=== PATIENT | male | born 1945 | race African-American/Black ===

== ENCOUNTER 2018-05-12 14:48 | Inpatient (IN) | payer MEDICARE, MEDICAID ==
[~2018-05-12] VITALS: Ht 180.3 cm; Wt 70.8 kg
[2018-05-12 16:00] VITALS: BP 133/62
[2018-05-12 16:31] VITALS: BP 133/62
[2018-05-12] MEDS ORDERED: CLONIDINE 0.1MG TABLET PO PRN (16:59)
[2018-05-12] MEDS ORDERED: MORPHINE SULFATE 4 MG/ML CPJ (NOT FOR IM USE) IV PRN ×2 (17:00→22:14)
[2018-05-12 18:07] LABS: BASOPHILS % 1.2 % (0.0-2.0); EOSINOPHILS % 2.1 % (0.0-5.0); HEMATOCRIT. 41.2 % (42.0-52.0); HEMOGLOBIN. 13.2 g/dL (14.0-18.0); LYMPHOCYTES % 13.9 % (20.0-50.0); MEAN CORPUSCULAR HEMOGLOBIN 28.1 pg (28.0-32.0); MEAN CORPUSCULAR VOLUME 87.8 fL (80.0-94.0); MEAN PLATELET VOLUME 9.8 fl (7.4-10.4); MONOCYTES % 10.1 % (2.0-8.0); NEUTROPHILS % 72.7 % (40.0-76.0); PLATELET 119 x1000/uL (130-400); RED BLOOD CELL COUNT 4.69 mill/uL (4.7-6.1); RED CELL DISTRIBUTION WIDTH 15.9 % (11.6-14.6)
[2018-05-12] MEDS ORDERED: CEFTRIAXONE 1 G PREMIX 50 ML IV SCH (19:00)
[2018-05-12 20:00] VITALS: BP 141/75
[2018-05-12] MEDS: CEFTRIAXONE 1 G PREMIX 50 ML IV SCH (21:47)
[2018-05-13] VITALS: BP 153/82
[2018-05-13 04:00] VITALS: BP 123/63
[2018-05-13 06:59] LABS: BASOPHILS % 1.2 % (0.0-2.0); HEMATOCRIT. 35.4 % (42.0-52.0); HEMOGLOBIN. 11.4 g/dL (14.0-18.0); LYMPHOCYTES % 16.3 % (20.0-50.0); MEAN CORPUSCULAR VOLUME 87.1 fL (80.0-94.0); MEAN PLATELET VOLUME 10.7 fl (7.4-10.4); NEUTROPHILS % 67.5 % (40.0-76.0); PLATELET 120 x1000/uL (130-400); RED BLOOD CELL COUNT 4.07 mill/uL (4.7-6.1); RED CELL DISTRIBUTION WIDTH 15.6 % (11.6-14.6)
[2018-05-13 08:00] VITALS: BP 130/66
[2018-05-13 08:16] LABS: PHOSPHORUS 3.6 mg/dL (2.5-4.9)
[2018-05-13] MEDS: FOLIC ACID 1MG TABLET PO SCH (08:42)
[2018-05-13] MEDS ORDERED: CEFTRIAXONE SODIUM 1 G/VIAL IV SCH (09:00)
[2018-05-13 12:04] VITALS: BP 134/69
[2018-05-13] MEDS: LEVOTHYROXINE SODIUM 50MCG TABLET PO SCH (12:57)
[2018-05-13] MEDS: ASPIRIN 81MG TABLET PO SCH (12:57)
[2018-05-13] MEDS: FOLIC ACID/VITAMIN B COMP W-C TABLET PO SCH (12:57)
[2018-05-13] MEDS ORDERED: FOLIC ACID/VITAMIN B COMP W-C TABLET PO SCH (13:00)
[2018-05-13 16:06] VITALS: BP 140/69
[2018-05-13 20:00] VITALS: BP 134/64
[2018-05-13] MEDS: CEFTRIAXONE 1 G PREMIX 50 ML IV SCH (21:40)
[2018-05-14] VITALS: BP 122/70
[2018-05-14 04:00] VITALS: BP 145/62
[2018-05-14] MEDS: LEVOTHYROXINE SODIUM 50MCG TABLET PO SCH (06:49)
[2018-05-14 08:00] VITALS: BP 131/78
[2018-05-14] MEDS: FOLIC ACID/VITAMIN B COMP W-C TABLET PO SCH (10:24)
[2018-05-14] MEDS: FOLIC ACID 1MG TABLET PO SCH (10:24)
[2018-05-14] MEDS: ASPIRIN 81MG TABLET PO SCH (10:24)
[2018-05-14 12:00] VITALS: BP_SYST 101; BP_SYST 125; BP_DIAS 59
[2018-05-14 16:00] VITALS: BP 125/59
[2018-05-14 18:27] LABS: T4 FREE 0.79 ng/dL (0.76-1.46)
[2018-05-14] MEDS: CEFTRIAXONE 1 G PREMIX 50 ML IV SCH (20:40)
[2018-05-15 04:00] VITALS: BP 137/66
[2018-05-15 06:36] LABS: BASOPHILS % 1.3 % (0.0-2.0); EOSINOPHILS % 3.9 % (0.0-5.0); HEMATOCRIT. 38.4 % (42.0-52.0); HEMOGLOBIN. 12.3 g/dL (14.0-18.0); LYMPHOCYTES % 23.4 % (20.0-50.0); MEAN CORPUSCULAR HEMOGLOBIN 28.3 pg (28.0-32.0); MEAN CORPUSCULAR VOLUME 88.4 fL (80.0-94.0); MEAN PLATELET VOLUME 9.8 fl (7.4-10.4); MONOCYTES % 8.1 % (2.0-8.0); NEUTROPHILS % 63.3 % (40.0-76.0); PLATELET 137 x1000/uL (130-400); RED BLOOD CELL COUNT 4.35 mill/uL (4.7-6.1); RED CELL DISTRIBUTION WIDTH 15.7 % (11.6-14.6)
[2018-05-15] MEDS ORDERED: PROPOFOL 200MG/20ML VIAL IV ONE (06:44)
[2018-05-15] MEDS ORDERED: FENTANYL CITRATE/PF 50MCG/ML 2ML VIAL ONE (06:44)
[2018-05-15] MEDS ORDERED: LIDOCAINE HCL/PF 1% 10 MG/ML 5ML VIAL ONE (06:45)
[2018-05-15] MEDS ORDERED: MIDAZOLAM HCL 2 MG/2 ML VIAL ONE (06:46)
[2018-05-15] MEDS ORDERED: ROCURONIUM BROMIDE 10MG/ML VIAL 5ML IV ONE (06:47)
[2018-05-15] MEDS ORDERED: EPHEDRINE SULFATE 50MG/ML VIAL ONE (06:48)
[2018-05-15] MEDS ORDERED: SODIUM CHLORIDE 0.9% 10ML VIAL ONE ×3 (06:48→07:57)
[2018-05-15] MEDS ORDERED: CEFAZOLIN SODIUM 1000MG/VIAL ONE (06:49)
[2018-05-15] MEDS ORDERED: SKIN ADHESIVE 0.7 GM EA TOP ONE (07:01)
[2018-05-15] MEDS ORDERED: BUPIVACAINE HCL 0.5% (5MG/ML) 50ML ONE (07:01)
[2018-05-15] MEDS: LEVOTHYROXINE SODIUM 50MCG TABLET PO SCH (07:20)
[2018-05-15] MEDS ORDERED: PHENYLEPHRINE HCL 10 MG/ML 1ML (IV VIAL) IV ONE (07:56)
[2018-05-15] MEDS ORDERED: GLYCOPYRROLATE 0.2 MG/ML 2ML VIAL ONE (08:04)
[2018-05-15] MEDS ORDERED: ONDANSETRON HCL 4MG/2ML INJ ONE (08:20)
[2018-05-15] MEDS ORDERED: BUPIVACAINE HCL 0.5% 125 ML in ON-Q PM012 DRUG DELIV DEVICE 1 EA IR SCH (09:00)
[2018-05-15] MEDS: FOLIC ACID 1MG TABLET PO SCH (09:00)
[2018-05-15] MEDS: ASPIRIN 81MG TABLET PO SCH (09:00)
[2018-05-15] MEDS: FOLIC ACID/VITAMIN B COMP W-C TABLET PO SCH (09:00)
[2018-05-15] MEDS ORDERED: BUPIVACAINE HCL 0.5% 125 ML in ON-Q PUMP (PM012=P100X2) IR SCH (09:00)
[2018-05-15] MEDS ORDERED: HYDROCODONE/ACETAMINOPHEN 5/325MG TABLET PO PRN ×2 (09:15)
[2018-05-15] MEDS ORDERED: MORPHINE SULFATE 4 MG/ML CPJ (NOT FOR IM USE) IV PRN ×2 (09:15)
[2018-05-15] MEDS ORDERED: HYDROMORPHONE HCL/PF 2MG/ML CPJ IV PRN (10:00)
[2018-05-15 12:00] VITALS: BP 99/50
[2018-05-15] MEDS: DEXT 5%/0.45% NACL KCL 20MEQ/L 1,000 ML IV SCH ×2 (13:17→22:14)
[2018-05-15 16:00] VITALS: BP 99/56
[2018-05-15 20:00] VITALS: BP 100/53
[2018-05-15] MEDS: SODIUM CHLORIDE 0.9% INJ 3ML FLUSH IVF SCH ×2 (22:14→23:58)
[2018-05-15] MEDS: CEFTRIAXONE 1 G PREMIX 50 ML IV SCH (23:59)
[2018-05-16] VITALS: BP 98/51
[2018-05-16 05:53] VITALS: BP 104/50
[2018-05-16] MEDS: LEVOTHYROXINE SODIUM 50MCG TABLET PO SCH (07:13)
[2018-05-16] MEDS: DEXT 5%/0.45% NACL KCL 20MEQ/L 1,000 ML IV SCH (07:14)
[2018-05-16] MEDS: SODIUM CHLORIDE 0.9% INJ 3ML FLUSH IVF SCH ×3 (07:15→21:05)
[2018-05-16 07:33] LABS: HEMATOCRIT. 25.2 % (42.0-52.0); HEMOGLOBIN. 8.1 g/dL (14.0-18.0); MEAN CORPUSCULAR HEMOGLOBIN 28.5 pg (28.0-32.0); MEAN CORPUSCULAR VOLUME 88.1 fL (80.0-94.0); MEAN PLATELET VOLUME 10.7 fl (7.4-10.4); PLATELET 116 x1000/uL (130-400); RED BLOOD CELL COUNT 2.86 mill/uL (4.7-6.1); RED CELL DISTRIBUTION WIDTH 15.5 % (11.6-14.6)
[2018-05-16 08:00] VITALS: BP 94/37
[2018-05-16] MEDS: FOLIC ACID 1MG TABLET PO SCH (09:10)
[2018-05-16] MEDS: ASPIRIN 81MG TABLET PO SCH (09:10)
[2018-05-16] MEDS: FOLIC ACID/VITAMIN B COMP W-C TABLET PO SCH (09:10)
[2018-05-16] MEDS ORDERED: SODIUM CHLORIDE 0.9% 500 ML IV ONE (09:15)
[2018-05-16 12:03] VITALS: BP_SYST 127; BP_SYST 92; BP_DIAS 41; BP_DIAS 83
[2018-05-16 14:21] LABS: PLATELET ESTIMATE SLIGHTLY DECREASED
[2018-05-16] MEDS: BISACODYL 5MG TABLET PO SCH (14:31)
[2018-05-16 16:24] VITALS: BP 110/35
[2018-05-16 20:00] VITALS: BP 110/43
[2018-05-16 20:22] LABS: HEMATOCRIT 23.4 % (42.0-52.0); HEMOGLOBIN 7.5 g/dL (14.0-18.0); MEAN CORPUSCULAR HEMOGLOBIN 28.4 pg (28.0-32.0); MEAN CORPUSCULAR VOLUME 89.1 fL (80.0-94.0); PLATELET 104 x1000/uL (130-400); RED BLOOD CELL COUNT 2.63 mill/uL (4.7-6.1); RED CELL DISTRIBUTION WIDTH 15.9 % (11.6-14.6)
[2018-05-16 20:37] LABS: CHLORIDE 99 mEq/L (98-107)
[2018-05-16] MEDS: CEFTRIAXONE 1 G PREMIX 50 ML IV SCH (21:04)
[2018-05-16] MEDS: DIPHENHYDRAMINE 50MG/ML VIAL IV PRN (22:30)
[2018-05-17] VITALS (11 sets, daily range): BP systolic 105–137; BP diastolic 38–62
[2018-05-17] MEDS: LEVOTHYROXINE SODIUM 50MCG TABLET PO SCH (06:20)
[2018-05-17] MEDS: SODIUM CHLORIDE 0.9% INJ 3ML FLUSH IVF SCH ×3 (06:21→21:39)
[2018-05-17 06:25] LABS: HEMATOCRIT. 22.8 % (42.0-52.0); HEMOGLOBIN. 7.4 g/dL (14.0-18.0); MEAN CORPUSCULAR HEMOGLOBIN 28.4 pg (28.0-32.0); MEAN PLATELET VOLUME 10.9 fl (7.4-10.4); PLATELET 107 x1000/uL (130-400); RED BLOOD CELL COUNT 2.59 mill/uL (4.7-6.1); RED CELL DISTRIBUTION WIDTH 15.9 % (11.6-14.6)
[2018-05-17] MEDS: FOLIC ACID/VITAMIN B COMP W-C TABLET PO SCH (08:43)
[2018-05-17] MEDS: BISACODYL 5MG TABLET PO SCH (08:43)
[2018-05-17] MEDS: ASPIRIN 81MG TABLET PO SCH (08:43)
[2018-05-17] MEDS ORDERED: SODIUM POLYSTYRENE SULFONATE 15 G/60 ML BOT PO NR (13:00)
[2018-05-17] MEDS: LACTULOSE 20G/30ML UDC PO SCH ×2 (13:17→21:39)
[2018-05-17] MEDS ORDERED: BISACODYL 10MG SUPP PR PRN (14:15)
[2018-05-17 17:43] LABS: PLATELET ESTIMATE DECREASED
[2018-05-17] MEDS: CEFTRIAXONE 1 G PREMIX 50 ML IV SCH (21:38)
[2018-05-18] VITALS (13 sets, daily range): BP systolic 116–146; BP diastolic 51–67
[2018-05-18] MEDS: LACTULOSE 20G/30ML UDC PO SCH ×3 (05:53→20:52)
[2018-05-18] MEDS: SODIUM CHLORIDE 0.9% INJ 3ML FLUSH IVF SCH ×3 (05:53→21:13)
[2018-05-18 06:25] LABS: MEAN CORPUSCULAR VOLUME 84.9 fL (80.0-94.0); MEAN PLATELET VOLUME 10.5 fl (7.4-10.4); PLATELET 102 x1000/uL (130-400); RED BLOOD CELL COUNT 2.39 mill/uL (4.7-6.1); RED CELL DISTRIBUTION WIDTH 17.6 % (11.6-14.6)
[2018-05-18] MEDS: LEVOTHYROXINE SODIUM 50MCG TABLET PO SCH (06:29)
[2018-05-18 07:00] LABS: HEMATOCRIT. 20.3 % (42.0-52.0); HEMOGLOBIN. 6.7 g/dL (14.0-18.0)
[2018-05-18] MEDS: FOLIC ACID/VITAMIN B COMP W-C TABLET PO SCH (08:52)
[2018-05-18] MEDS: BISACODYL 5MG TABLET PO SCH (08:53)
[2018-05-18] MEDS: ASPIRIN 81MG TABLET PO SCH (08:53)
[2018-05-18 11:48] LABS: PLATELET ESTIMATE DECREASED
[2018-05-18 16:52] LABS: HEMATOCRIT 22.8 % (42.0-52.0); HEMOGLOBIN 7.5 g/dL (14.0-18.0)
[2018-05-18 16:55] LABS: INR 1.3; PROTHROMBIN TIME 12.7 sec (9.1-11.1)
[2018-05-18] MEDS: CEFTRIAXONE 1 G PREMIX 50 ML IV SCH (21:13)
[2018-05-19] VITALS (75 sets, daily range): BP systolic 84–157; BP diastolic 35–80
[2018-05-19] MEDS: LACTULOSE 20G/30ML UDC PO SCH (06:00)
[2018-05-19] MEDS: SODIUM CHLORIDE 0.9% INJ 3ML FLUSH IVF SCH ×3 (06:00→20:16)
[2018-05-19] MEDS: LEVOTHYROXINE SODIUM 50MCG TABLET PO SCH ×2 (06:44→06:45)
[2018-05-19] MEDS ORDERED: DOPAMINE 800MG PREMIX (DOUBLE) 250 ML IV PRN (07:43)
[2018-05-19] MEDS ORDERED: NOREPINEPHRINE 16 MG in DEXT 5% WATER 234 ML IV PRN (07:45)
[2018-05-19 07:58] LABS: HEMATOCRIT. 24.3 % (42.0-52.0); MEAN CORPUSCULAR HEMOGLOBIN 28.2 pg (28.0-32.0); MEAN CORPUSCULAR VOLUME 85.2 fL (80.0-94.0); MEAN PLATELET VOLUME 10.1 fl (7.4-10.4); PLATELET 125 x1000/uL (130-400); RED BLOOD CELL COUNT 2.84 mill/uL (4.7-6.1); RED CELL DISTRIBUTION WIDTH 16.2 % (11.6-14.6)
[2018-05-19 08:05] LABS: PHOSPHORUS 7.6 mg/dL (2.5-4.9)
[2018-05-19 08:07] LABS: BG BASE EXCESS -1.1 mmol/L (-2.0-2.0); BG CARBOXYHEMOGLOBIN 0.6 % (0.5-1.5); BG DEOXYHEMOGLOBIN 0.6 % (0.0-5.0); BG FRACTION INSPIRED OXYGEN 100; BG HCO3 ACT 21.2 mmol/L (22.0-26.0); BG METHEMOGLOBIN 0.3 % (0.0-1.5); BG OXYGEN SATURATION 99.4 % (92.0-98.5); BG OXYHEMOGLOBIN 98.5 % (94.0-97.0); BG PCO2 26.8 mmHg (35.0-45.0); BG PH 7.516 (7.350-7.450); BG PO2 354.1 mmHg (75.0-100.0); BG SAMPLE SITE RIGHT BRACHIAL; BG TIDAL VOLUME(mL) 500 mL; BG TOTAL HEMOGLOBIN 8.8 g/dL (12.0-18.0); BG VENT MODE VENT - A/C; BG VENT RATE 16 set
[2018-05-19] MEDS: PROPOFOL 10MG/ML 100ML 100 ML IV PRN ×2 (09:17→20:16)
[2018-05-19] MEDS ORDERED: LIDOCAINE HCL 1% 20ML VIAL (Pyxis) INJ ONE (09:43)
[2018-05-19] MEDS ORDERED: AMIODARONE HCL 900 MG in DEXT 5% WATER 482 ML IV SCH (10:00)
[2018-05-19] MEDS ORDERED: MAGNESIUM 2 G PREMIX 50 ML IV NR (10:30)
[2018-05-19] MEDS ORDERED: CALCIUM CHLORIDE 1GM/10ML SYR IV ONE (13:12)
[2018-05-19] MEDS ORDERED: SODIUM BICARBONATE 8.4% 1 MEQ/ML 50ML SYR IV ONE (13:12)
[2018-05-19] MEDS ORDERED: VECURONIUM BROMIDE 10 MG/VIAL IV ONE (13:46)
[2018-05-19] MEDS ORDERED: SODIUM CHLORIDE 0.9% 10ML VIAL ONE (13:46)
[2018-05-19] MEDS ORDERED: ETOMIDATE 2MG/ML 10ML VIAL IV ONE (13:46)
[2018-05-19] MEDS: IPRATROPIUM/ALBUTEROL 0.5-3(2.5)MG/3ML NEB HHN SCH ×2 (14:04→20:21)
[2018-05-19] MEDS: PHENYLEPHRINE 40 MG in DEXT 5% WATER 246 ML IV PRN (16:21)
[2018-05-19 16:28] LABS: PLATELET ESTIMATE DECREASED
[2018-05-19] MEDS ORDERED: VANCOMYCIN 2,000 MG in DEXT 5% WATER 500 ML IV NR (17:00)
[2018-05-19 17:41] LABS: HEMATOCRIT 29.5 % (42.0-52.0); HEMOGLOBIN 9.5 g/dL (14.0-18.0)
[2018-05-19] MEDS: ASPIRIN 81MG TABLET PO SCH (19:14)
[2018-05-19] MEDS: FOLIC ACID/VITAMIN B COMP W-C TABLET PO SCH (19:14)
[2018-05-19] MEDS: CEFEPIME 1,000 MG in DEXTROSE 5% WATER 50 ML IV SCH (19:14)
[2018-05-20] VITALS (99 sets, daily range): BP systolic 82–159; BP diastolic 30–81
[2018-05-20] MEDS: PHENYLEPHRINE 40 MG in DEXT 5% WATER 246 ML IV PRN (00:02)
[2018-05-20] MEDS: IPRATROPIUM/ALBUTEROL 0.5-3(2.5)MG/3ML NEB HHN SCH ×4 (02:25→20:00)
[2018-05-20 05:58] LABS: HEMATOCRIT. 28.9 % (42.0-52.0); HEMOGLOBIN. 9.6 g/dL (14.0-18.0); MEAN CORPUSCULAR HEMOGLOBIN 28.3 pg (28.0-32.0); MEAN CORPUSCULAR VOLUME 85.2 fL (80.0-94.0); MEAN PLATELET VOLUME 9.6 fl (7.4-10.4); PLATELET 204 x1000/uL (130-400)
[2018-05-20] MEDS: SODIUM CHLORIDE 0.9% INJ 3ML FLUSH IVF SCH ×3 (06:00→22:00)
[2018-05-20 08:29] LABS: BG BASE EXCESS -1.8 mmol/L (-2.0-2.0); BG CARBOXYHEMOGLOBIN 0.2 % (0.5-1.5); BG DEOXYHEMOGLOBIN 1.2 % (0.0-5.0); BG FRACTION INSPIRED OXYGEN 40; BG HCO3 ACT 23.7 mmol/L (22.0-26.0); BG METHEMOGLOBIN 0.7 % (0.0-1.5); BG OXYGEN SATURATION 98.8 % (92.0-98.5); BG OXYHEMOGLOBIN 97.9 % (94.0-97.0); BG PH 7.359 (7.350-7.450); BG PO2 166.6 mmHg (75.0-100.0); BG SAMPLE SITE LEFT RADIAL; BG TIDAL VOLUME(mL) 500 mL; BG TOTAL HEMOGLOBIN 11.2 g/dL (12.0-18.0); BG VENT MODE VENT - A/C; BG VENT RATE 12 set
[2018-05-20] MEDS: FOLIC ACID/VITAMIN B COMP W-C TABLET PO SCH (09:27)
[2018-05-20] MEDS: ASPIRIN 81MG TABLET PO SCH (09:27)
[2018-05-20] MEDS: LEVOTHYROXINE SODIUM 50MCG TABLET PO SCH (09:36)
[2018-05-20 10:16] LABS: PLATELET ESTIMATE NORMAL
[2018-05-20] MEDS: IPRATROPIUM/ALBUTEROL 0.5-3(2.5)MG/3ML NEB HHN PRN (12:45)
[2018-05-20] MEDS: PROPOFOL 10MG/ML 100ML 100 ML IV PRN (14:10)
[2018-05-20] MEDS: CEFEPIME 1,000 MG in DEXTROSE 5% WATER 50 ML IV SCH (17:54)
[2018-05-21] VITALS (81 sets, daily range): BP systolic 93–164; BP diastolic 39–96
[2018-05-21] MEDS: PHENYLEPHRINE 40 MG in DEXT 5% WATER 246 ML IV PRN ×2 (01:26→11:07)
[2018-05-21] MEDS: PROPOFOL 10MG/ML 100ML 100 ML IV PRN (01:28)
[2018-05-21] MEDS: IPRATROPIUM/ALBUTEROL 0.5-3(2.5)MG/3ML NEB HHN SCH ×4 (03:02→20:16)
[2018-05-21] MEDS: SODIUM CHLORIDE 0.9% INJ 3ML FLUSH IVF SCH ×3 (06:03→23:00)
[2018-05-21 08:07] LABS: HEMATOCRIT. 38.5 % (42.0-52.0); HEMOGLOBIN. 12.6 g/dL (14.0-18.0); MEAN CORPUSCULAR VOLUME 85.7 fL (80.0-94.0); MEAN PLATELET VOLUME 9.6 fl (7.4-10.4); PLATELET 150 x1000/uL (130-400); RED BLOOD CELL COUNT 4.49 mill/uL (4.7-6.1); RED CELL DISTRIBUTION WIDTH 16.1 % (11.6-14.6)
[2018-05-21 08:09] LABS: CHLORIDE 94 mEq/L (98-107)
[2018-05-21 09:02] LABS: BG BASE EXCESS -0.3 mmol/L (-2.0-2.0); BG CARBOXYHEMOGLOBIN 0.6 % (0.5-1.5); BG DEOXYHEMOGLOBIN 1.2 % (0.0-5.0); BG FRACTION INSPIRED OXYGEN 40; BG HCO3 ACT 24.5 mmol/L (22.0-26.0); BG METHEMOGLOBIN 0.3 % (0.0-1.5); BG OXYGEN SATURATION 98.8 % (92.0-98.5); BG OXYHEMOGLOBIN 97.9 % (94.0-97.0); BG PCO2 41.2 mmHg (35.0-45.0); BG PH 7.393 (7.350-7.450); BG PO2 148.1 mmHg (75.0-100.0); BG SAMPLE SITE LEFT RADIAL; BG TIDAL VOLUME(mL) 500 mL; BG TOTAL HEMOGLOBIN 10.1 g/dL (12.0-18.0); BG VENT MODE VENT - A/C; BG VENT RATE 12 set
[2018-05-21] MEDS ORDERED: PROPOFOL 10MG/ML 100ML 100 ML IV PRN (09:30)
[2018-05-21 10:21] LABS: PLATELET ESTIMATE NORMAL
[2018-05-21] MEDS: ASPIRIN 81MG TABLET PO SCH (10:45)
[2018-05-21] MEDS: FOLIC ACID/VITAMIN B COMP W-C TABLET PO SCH (10:45)
[2018-05-21] MEDS: LEVOTHYROXINE SODIUM 50MCG TABLET PO SCH (10:45)
[2018-05-21] MEDS: IPRATROPIUM/ALBUTEROL 0.5-3(2.5)MG/3ML NEB HHN PRN (12:02)
[2018-05-21 13:47] LABS: BG BASE EXCESS -0.2 mmol/L (-2.0-2.0); BG CARBOXYHEMOGLOBIN 0.2 % (0.5-1.5); BG FRACTION INSPIRED OXYGEN 40; BG HCO3 ACT 24.7 mmol/L (22.0-26.0); BG METHEMOGLOBIN 0.3 % (0.0-1.5); BG OXYHEMOGLOBIN 97.5 % (94.0-97.0); BG PCO2 41.7 mmHg (35.0-45.0); BG PEEP (cmH2O) 0 cmH2O; BG PH 7.391 (7.350-7.450); BG PO2 122.6 mmHg (75.0-100.0); BG SAMPLE SITE LEFT RADIAL; BG TOTAL HEMOGLOBIN 10.1 g/dL (12.0-18.0); BG VENT MODE VENT - CPAP
[2018-05-21] MEDS ORDERED: RACEPINEPHRINE 2.25% 0.5ML NEB VIAL HHN NR (14:45)
[2018-05-21] MEDS ORDERED: METHYLPREDNISOLONE SOD SUCC 125 MG/2 ML VIAL IV NR (15:00)
[2018-05-21] MEDS: CEFEPIME 1,000 MG in DEXTROSE 5% WATER 50 ML IV SCH (17:17)
[2018-05-21] MEDS ORDERED: RACEPINEPHRINE 2.25% 0.5ML NEB VIAL HHN PRN (18:00)
[2018-05-21] MEDS: METHYLPREDNISOLONE SOD SUCC 125 MG/2 ML VIAL IV SCH (22:59)
[2018-05-22] VITALS (80 sets, daily range): BP systolic 71–158; BP diastolic 39–125
[2018-05-22] MEDS: DIPHENHYDRAMINE 50MG/ML VIAL IV PRN (00:53)
[2018-05-22] MEDS: IPRATROPIUM/ALBUTEROL 0.5-3(2.5)MG/3ML NEB HHN SCH ×4 (01:40→20:40)
[2018-05-22] MEDS: SODIUM CHLORIDE 0.9% INJ 3ML FLUSH IVF SCH ×3 (06:00→21:44)
[2018-05-22 06:16] LABS: HEMATOCRIT. 26.9 % (42.0-52.0); HEMOGLOBIN. 9.1 g/dL (14.0-18.0); MEAN CORPUSCULAR HEMOGLOBIN 28.7 pg (28.0-32.0); MEAN CORPUSCULAR VOLUME 85.2 fL (80.0-94.0); MEAN PLATELET VOLUME 9.5 fl (7.4-10.4); PLATELET 163 x1000/uL (130-400); RED BLOOD CELL COUNT 3.16 mill/uL (4.7-6.1)
[2018-05-22] MEDS: METHYLPREDNISOLONE SOD SUCC 125 MG/2 ML VIAL IV SCH ×3 (07:14→21:44)
[2018-05-22 07:52] LABS: BG BASE EXCESS -2.2 mmol/L (-2.0-2.0); BG CARBOXYHEMOGLOBIN 0.4 % (0.5-1.5); BG DEOXYHEMOGLOBIN 1.8 % (0.0-5.0); BG FRACTION INSPIRED OXYGEN 40; BG HCO3 ACT 22.5 mmol/L (22.0-26.0); BG METHEMOGLOBIN 0.3 % (0.0-1.5); BG OXYGEN SATURATION 98.2 % (92.0-98.5); BG OXYHEMOGLOBIN 97.5 % (94.0-97.0); BG PCO2 37.8 mmHg (35.0-45.0); BG PH 7.392 (7.350-7.450); BG PO2 127.6 mmHg (75.0-100.0); BG PRESSURE SUPPORT 8; BG SAMPLE SITE LEFT RADIAL; BG TOTAL HEMOGLOBIN 9.9 g/dL (12.0-18.0); BG VENT MODE VENT - CPAP
[2018-05-22] MEDS ORDERED: LORAZEPAM 2MG/ML CPJ IV PRN (09:00)
[2018-05-22] MEDS: LEVOTHYROXINE SODIUM 50MCG TABLET PO SCH (09:22)
[2018-05-22] MEDS: ASPIRIN 81MG TABLET PO SCH (09:22)
[2018-05-22] MEDS: FOLIC ACID/VITAMIN B COMP W-C TABLET PO SCH (09:22)
[2018-05-22 09:47] LABS: PLATELET ESTIMATE NORMAL
[2018-05-22] MEDS ORDERED: MIDAZOLAM HCL 2 MG/2 ML VIAL ONE (11:24)
[2018-05-22] MEDS ORDERED: FENTANYL CITRATE/PF 50MCG/ML 2ML VIAL ONE (11:25)
[2018-05-22] MEDS ORDERED: LIDOCAINE HCL 1% 20ML VIAL (Pyxis) INJ ONE (11:25)
[2018-05-22] MEDS ORDERED: IODIXANOL 320MG/ML 100 ML BOTTLE IV ONE (11:25)
[2018-05-22] MEDS ORDERED: DIPHENHYDRAMINE 50MG/ML VIAL ONE (11:32)
[2018-05-22] MEDS ORDERED: HYDROCORTISONE SOD SUCCINATE 250 MG/2 ML VIAL ONE (11:32)
[2018-05-22] MEDS ORDERED: ATROPINE SULFATE 1MG/10ML SYR IV PRN (12:15)
[2018-05-22] MEDS ORDERED: ACETAMINOPHEN 325MG TABLET PO PRN (12:15)
[2018-05-22] MEDS ORDERED: FAMOTIDINE 20MG/2ML VIAL IV ONE (12:39)
[2018-05-22] MEDS ORDERED: NICARDIPINE 100MCG/ML 10ML VIAL (CATH LAB) IV ONE (15:43)
[2018-05-22] MEDS ORDERED: NITROGLYCERIN 50MCG/ML 10ML VIAL (CATH LAB) IV ONE (15:43)
[2018-05-22 15:58] LABS: HEMATOCRIT 26.3 % (42.0-52.0); HEMOGLOBIN 8.6 g/dL (14.0-18.0)
[2018-05-22] MEDS: CEFEPIME 1,000 MG in DEXTROSE 5% WATER 50 ML IV SCH (21:43)
[2018-05-23] VITALS (47 sets, daily range): BP systolic 103–154; BP diastolic 37–134
[2018-05-23 05:41] LABS: HEMATOCRIT. 29.3 % (42.0-52.0); HEMOGLOBIN. 9.6 g/dL (14.0-18.0); MEAN CORPUSCULAR HEMOGLOBIN 28.2 pg (28.0-32.0); MEAN CORPUSCULAR VOLUME 85.9 fL (80.0-94.0); MEAN PLATELET VOLUME 9.8 fl (7.4-10.4); PLATELET 202 x1000/uL (130-400); RED BLOOD CELL COUNT 3.41 mill/uL (4.7-6.1); RED CELL DISTRIBUTION WIDTH 15.6 % (11.6-14.6)
[2018-05-23] MEDS: SODIUM CHLORIDE 0.9% INJ 3ML FLUSH IVF SCH ×3 (05:48→22:53)
[2018-05-23 06:02] LABS: PHOSPHORUS 6.1 mg/dL (2.5-4.9)
[2018-05-23] MEDS: METHYLPREDNISOLONE SOD SUCC 125 MG/2 ML VIAL IV SCH (06:52)
[2018-05-23] MEDS: IPRATROPIUM/ALBUTEROL 0.5-3(2.5)MG/3ML NEB HHN SCH ×3 (07:55→19:54)
[2018-05-23] MEDS: FOLIC ACID/VITAMIN B COMP W-C TABLET PO SCH (08:33)
[2018-05-23] MEDS: LEVOTHYROXINE SODIUM 50MCG TABLET PO SCH (08:33)
[2018-05-23] MEDS: ASPIRIN 81MG TABLET PO SCH (08:33)
[2018-05-23 09:10] LABS: BG BASE EXCESS 0.8 mmol/L (-2.0-2.0); BG CARBOXYHEMOGLOBIN 0.3 % (0.5-1.5); BG DEOXYHEMOGLOBIN 2.5 % (0.0-5.0); BG FRACTION INSPIRED OXYGEN 40; BG HCO3 ACT 24.9 mmol/L (22.0-26.0); BG METHEMOGLOBIN 0.4 % (0.0-1.5); BG OXYGEN SATURATION 97.5 % (92.0-98.5); BG OXYHEMOGLOBIN 96.8 % (94.0-97.0); BG PCO2 37.6 mmHg (35.0-45.0); BG PH 7.439 (7.350-7.450); BG PO2 108.4 mmHg (75.0-100.0); BG PRESSURE SUPPORT 8; BG SAMPLE SITE LEFT RADIAL; BG TOTAL HEMOGLOBIN 10.1 g/dL (12.0-18.0); BG VENT MODE VENT - CPAP
[2018-05-23 10:41] LABS: PLATELET ESTIMATE NORMAL
[2018-05-23] MEDS ORDERED: VANCOMYCIN 1 G PREMIX 200 ML IV NR (11:00)
[2018-05-23] MEDS: CEFEPIME 1,000 MG in DEXTROSE 5% WATER 50 ML IV SCH (17:40)
[2018-05-23] MEDS: METHYLPREDNISOLONE SOD SUCC 40 MG/ML VIAL IV SCH (17:44)
[2018-05-24] VITALS (54 sets, daily range): BP systolic 90–164; BP diastolic 47–96
[2018-05-24] MEDS: IPRATROPIUM/ALBUTEROL 0.5-3(2.5)MG/3ML NEB HHN SCH ×4 (01:52→21:22)
[2018-05-24 05:56] LABS: HEMATOCRIT. 27.1 % (42.0-52.0); HEMOGLOBIN. 8.9 g/dL (14.0-18.0); MEAN CORPUSCULAR HEMOGLOBIN 28.4 pg (28.0-32.0); MEAN CORPUSCULAR VOLUME 85.9 fL (80.0-94.0); MEAN PLATELET VOLUME 9.5 fl (7.4-10.4); PLATELET 214 x1000/uL (130-400); RED BLOOD CELL COUNT 3.15 mill/uL (4.7-6.1); RED CELL DISTRIBUTION WIDTH 16.1 % (11.6-14.6)
[2018-05-24] MEDS: SODIUM CHLORIDE 0.9% INJ 3ML FLUSH IVF SCH ×3 (06:27→22:00)
[2018-05-24] MEDS: LEVOTHYROXINE SODIUM 50MCG TABLET PO SCH (08:59)
[2018-05-24] MEDS: METHYLPREDNISOLONE SOD SUCC 40 MG/ML VIAL IV SCH (09:00)
[2018-05-24] MEDS: FOLIC ACID/VITAMIN B COMP W-C TABLET PO SCH (09:00)
[2018-05-24] MEDS: ASPIRIN 81MG TABLET PO SCH (09:00)
[2018-05-24] MEDS ORDERED: PREDNISONE 20MG TABLET PO NR (10:00)
[2018-05-24 15:20] LABS: PLATELET ESTIMATE NORMAL
[2018-05-24] MEDS: CEFEPIME 1,000 MG in DEXTROSE 5% WATER 50 ML IV SCH (15:48)
[2018-05-25] VITALS (28 sets, daily range): BP systolic 81–165; BP diastolic 47–100
[2018-05-25] MEDS: IPRATROPIUM/ALBUTEROL 0.5-3(2.5)MG/3ML NEB HHN SCH ×4 (01:33→21:06)
[2018-05-25 05:43] LABS: HEMATOCRIT. 30.2 % (42.0-52.0); HEMOGLOBIN. 9.6 g/dL (14.0-18.0); MEAN CORPUSCULAR VOLUME 88.1 fL (80.0-94.0); MEAN PLATELET VOLUME 9.2 fl (7.4-10.4); PLATELET 207 x1000/uL (130-400); RED BLOOD CELL COUNT 3.43 mill/uL (4.7-6.1)
[2018-05-25 06:16] LABS: CHLORIDE 96 mEq/L (98-107)
[2018-05-25] MEDS: SODIUM CHLORIDE 0.9% INJ 3ML FLUSH IVF SCH ×3 (06:36→21:50)
[2018-05-25 07:30] LABS: PLATELET ESTIMATE NORMAL
[2018-05-25] MEDS: ASPIRIN 81MG TABLET PO SCH (09:25)
[2018-05-25] MEDS: FOLIC ACID/VITAMIN B COMP W-C TABLET PO SCH (09:25)
[2018-05-25] MEDS: PREDNISONE 20MG TABLET PO SCH (09:25)
[2018-05-25] MEDS: LEVOTHYROXINE SODIUM 50MCG TABLET PO SCH (09:34)
[2018-05-25] MEDS: METOPROLOL TARTRATE 25MG TABLET PO SCH ×2 (11:00→21:50)
[2018-05-25] MEDS: CEFEPIME 1,000 MG in DEXTROSE 5% WATER 50 ML IV SCH (17:44)
[2018-05-26] VITALS (20 sets, daily range): BP systolic 92–160; BP diastolic 46–89
[2018-05-26] MEDS: IPRATROPIUM/ALBUTEROL 0.5-3(2.5)MG/3ML NEB HHN SCH ×4 (01:50→21:14)
[2018-05-26] MEDS: LEVOTHYROXINE SODIUM 50MCG TABLET PO SCH (06:16)
[2018-05-26] MEDS: SODIUM CHLORIDE 0.9% INJ 3ML FLUSH IVF SCH ×2 (06:16→22:02)
[2018-05-26 06:50] LABS: HEMATOCRIT. 30.1 % (42.0-52.0); HEMOGLOBIN. 9.3 g/dL (14.0-18.0); MEAN CORPUSCULAR HEMOGLOBIN 28.3 pg (28.0-32.0); MEAN PLATELET VOLUME 9.4 fl (7.4-10.4); PLATELET 160 x1000/uL (130-400); RED BLOOD CELL COUNT 3.31 mill/uL (4.7-6.1); RED CELL DISTRIBUTION WIDTH 15.9 % (11.6-14.6)
[2018-05-26] MEDS: PREDNISONE 20MG TABLET PO SCH (09:00)
[2018-05-26] MEDS: METOPROLOL TARTRATE 25MG TABLET PO SCH ×2 (09:00→22:02)
[2018-05-26] MEDS: FOLIC ACID/VITAMIN B COMP W-C TABLET PO SCH (09:00)
[2018-05-26] MEDS: ASPIRIN 81MG TABLET PO SCH (09:00)
[2018-05-26 10:51] LABS: PLATELET ESTIMATE NORMAL
[2018-05-26] MEDS: THROAT LOZENGES-BENZOCAINE/MENTH/CETYLPYRD CL LOZENGES MM PRN (13:25)
[2018-05-26] MEDS ORDERED: VANCOMYCIN 1 G PREMIX 200 ML IV NR (21:00)
[2018-05-26] MEDS: ATORVASTATIN CALCIUM 40MG TABLET PO SCH (22:02)
[2018-05-27] VITALS (13 sets, daily range): BP systolic 120–181; BP diastolic 51–75
[2018-05-27] MEDS: IPRATROPIUM/ALBUTEROL 0.5-3(2.5)MG/3ML NEB HHN SCH ×2 (01:11→20:38)
[2018-05-27] MEDS: LEVOTHYROXINE SODIUM 50MCG TABLET PO SCH (06:53)
[2018-05-27] MEDS: SODIUM CHLORIDE 0.9% INJ 3ML FLUSH IVF SCH ×4 (06:54→22:31)
[2018-05-27] MEDS: THROAT LOZENGES-BENZOCAINE/MENTH/CETYLPYRD CL LOZENGES MM PRN (06:54)
[2018-05-27] MEDS: ASPIRIN 81MG TABLET PO SCH (08:32)
[2018-05-27] MEDS: FOLIC ACID/VITAMIN B COMP W-C TABLET PO SCH (08:32)
[2018-05-27] MEDS: PREDNISONE 20MG TABLET PO SCH (08:33)
[2018-05-27] MEDS: METOPROLOL TARTRATE 25MG TABLET PO SCH ×2 (08:33→22:30)
[2018-05-27] MEDS: ATORVASTATIN CALCIUM 40MG TABLET PO SCH (22:29)
[2018-05-28] VITALS (13 sets, daily range): BP systolic 114–151; BP diastolic 58–106
[2018-05-28] MEDS: IPRATROPIUM/ALBUTEROL 0.5-3(2.5)MG/3ML NEB HHN SCH ×4 (00:39→21:10)
[2018-05-28] MEDS: LEVOTHYROXINE SODIUM 50MCG TABLET PO SCH (06:36)
[2018-05-28] MEDS: SODIUM CHLORIDE 0.9% INJ 3ML FLUSH IVF SCH ×3 (06:37→21:46)
[2018-05-28 08:48] LABS: HEMATOCRIT. 31.5 % (42.0-52.0); MEAN CORPUSCULAR HEMOGLOBIN 27.7 pg (28.0-32.0); MEAN CORPUSCULAR VOLUME 87.4 fL (80.0-94.0); PLATELET 198 x1000/uL (130-400); RED BLOOD CELL COUNT 3.61 mill/uL (4.7-6.1); RED CELL DISTRIBUTION WIDTH 15.8 % (11.6-14.6)
[2018-05-28] MEDS: FOLIC ACID/VITAMIN B COMP W-C TABLET PO SCH (09:13)
[2018-05-28] MEDS: PREDNISONE 20MG TABLET PO SCH (09:14)
[2018-05-28] MEDS: ASPIRIN 81MG TABLET PO SCH (09:14)
[2018-05-28] MEDS: METOPROLOL TARTRATE 25MG TABLET PO SCH (09:14)
[2018-05-28 13:20] LABS: PLATELET ESTIMATE NORMAL
[2018-05-28] MEDS: AMIODARONE HCL 200 MG TABLET PO SCH (15:20)
[2018-05-28] MEDS: METOPROLOL TARTRATE 50MG TABLET PO SCH (21:46)
[2018-05-28] MEDS: ATORVASTATIN CALCIUM 40MG TABLET PO SCH (21:46)
[2018-05-29] VITALS (12 sets, daily range): BP systolic 97–151; BP diastolic 54–77
[2018-05-29] MEDS: IPRATROPIUM/ALBUTEROL 0.5-3(2.5)MG/3ML NEB HHN SCH ×4 (02:08→20:58)
[2018-05-29] MEDS: SODIUM CHLORIDE 0.9% INJ 3ML FLUSH IVF SCH ×3 (06:22→21:26)
[2018-05-29] MEDS: LEVOTHYROXINE SODIUM 50MCG TABLET PO SCH (06:22)
[2018-05-29 06:49] LABS: HEMATOCRIT. 32.1 % (42.0-52.0); HEMOGLOBIN. 10.2 g/dL (14.0-18.0); MEAN CORPUSCULAR HEMOGLOBIN 27.6 pg (28.0-32.0); MEAN CORPUSCULAR VOLUME 86.5 fL (80.0-94.0); MEAN PLATELET VOLUME 10.3 fl (7.4-10.4); PLATELET 189 x1000/uL (130-400); RED BLOOD CELL COUNT 3.71 mill/uL (4.7-6.1); RED CELL DISTRIBUTION WIDTH 15.8 % (11.6-14.6)
[2018-05-29] MEDS: FOLIC ACID/VITAMIN B COMP W-C TABLET PO SCH (08:19)
[2018-05-29] MEDS: ASPIRIN 81MG TABLET PO SCH (08:19)
[2018-05-29] MEDS: AMIODARONE HCL 200 MG TABLET PO SCH (08:19)
[2018-05-29] MEDS: PREDNISONE 20MG TABLET PO SCH (08:19)
[2018-05-29] MEDS: METOPROLOL TARTRATE 50MG TABLET PO SCH ×2 (08:19→20:34)
[2018-05-29 10:23] LABS: PLATELET ESTIMATE NORMAL
[2018-05-29] MEDS: GUAIFENESIN 600MG ER TABLET PO SCH (20:34)
[2018-05-29] MEDS: ATORVASTATIN CALCIUM 40MG TABLET PO SCH (20:34)
[2018-05-30] VITALS (12 sets, daily range): BP systolic 110–137; BP diastolic 50–75
[2018-05-30] MEDS: IPRATROPIUM/ALBUTEROL 0.5-3(2.5)MG/3ML NEB HHN SCH ×4 (01:39→22:14)
[2018-05-30] MEDS: LEVOTHYROXINE SODIUM 50MCG TABLET PO SCH (05:55)
[2018-05-30] MEDS: SODIUM CHLORIDE 0.9% INJ 3ML FLUSH IVF SCH ×3 (06:11→22:50)
[2018-05-30 06:45] LABS: HEMATOCRIT. 27.4 % (42.0-52.0); MEAN CORPUSCULAR HEMOGLOBIN 28.3 pg (28.0-32.0); MEAN CORPUSCULAR VOLUME 86.1 fL (80.0-94.0); MEAN PLATELET VOLUME 10.5 fl (7.4-10.4); PLATELET 183 x1000/uL (130-400); RED BLOOD CELL COUNT 3.18 mill/uL (4.7-6.1); RED CELL DISTRIBUTION WIDTH 15.9 % (11.6-14.6)
[2018-05-30] MEDS: FOLIC ACID/VITAMIN B COMP W-C TABLET PO SCH (08:40)
[2018-05-30] MEDS: AMIODARONE HCL 200 MG TABLET PO SCH (08:40)
[2018-05-30] MEDS: GUAIFENESIN 600MG ER TABLET PO SCH ×2 (08:40→20:34)
[2018-05-30] MEDS: ASPIRIN 81MG TABLET PO SCH (08:40)
[2018-05-30] MEDS: METOPROLOL TARTRATE 50MG TABLET PO SCH ×2 (08:42→20:00)
[2018-05-30 11:48] LABS: NUCLEATED RED BLOOD CELLS 1 /100 WBC; PLATELET ESTIMATE NORMAL
[2018-05-30] MEDS: ATORVASTATIN CALCIUM 40MG TABLET PO SCH (20:34)
[2018-05-31] VITALS (11 sets, daily range): BP systolic 117–155; BP diastolic 55–79
[2018-05-31] MEDS: IPRATROPIUM/ALBUTEROL 0.5-3(2.5)MG/3ML NEB HHN SCH ×3 (01:00→20:09)
[2018-05-31] MEDS: LEVOTHYROXINE SODIUM 50MCG TABLET PO SCH (05:36)
[2018-05-31] MEDS: SODIUM CHLORIDE 0.9% INJ 3ML FLUSH IVF SCH ×3 (05:36→21:21)
[2018-05-31 07:01] LABS: HEMATOCRIT. 27.5 % (42.0-52.0); HEMOGLOBIN. 8.9 g/dL (14.0-18.0); MEAN CORPUSCULAR HEMOGLOBIN 27.7 pg (28.0-32.0); MEAN CORPUSCULAR VOLUME 85.7 fL (80.0-94.0); MEAN PLATELET VOLUME 10.7 fl (7.4-10.4); PLATELET 177 x1000/uL (130-400); RED BLOOD CELL COUNT 3.21 mill/uL (4.7-6.1); RED CELL DISTRIBUTION WIDTH 15.8 % (11.6-14.6)
[2018-05-31] MEDS: FOLIC ACID/VITAMIN B COMP W-C TABLET PO SCH (08:57)
[2018-05-31] MEDS: AMIODARONE HCL 200 MG TABLET PO SCH (08:57)
[2018-05-31] MEDS: ASPIRIN 81MG TABLET PO SCH (08:58)
[2018-05-31] MEDS: GUAIFENESIN 600MG ER TABLET PO SCH ×2 (08:58→21:20)
[2018-05-31] MEDS: METOPROLOL TARTRATE 50MG TABLET PO SCH ×2 (08:58→21:20)
[2018-05-31] MEDS ORDERED: TRAMADOL 50MG TABLET PO PRN (10:15)
[2018-05-31] MEDS: ACETAMINOPHEN 500MG TABLET PO SCH (10:27)
[2018-05-31 13:07] LABS: PLATELET ESTIMATE NORMAL
[2018-05-31] MEDS: ATORVASTATIN CALCIUM 40MG TABLET PO SCH (21:20)
[2018-06-01] VITALS (13 sets, daily range): BP systolic 119–150; BP diastolic 52–79
[2018-06-01] MEDS: ACETAMINOPHEN 500MG TABLET PO SCH ×4 (00:05→17:15)
[2018-06-01] MEDS: IPRATROPIUM/ALBUTEROL 0.5-3(2.5)MG/3ML NEB HHN SCH ×4 (01:31→20:34)
[2018-06-01] MEDS: SODIUM CHLORIDE 0.9% INJ 3ML FLUSH IVF SCH ×3 (05:57→22:00)
[2018-06-01] MEDS: LEVOTHYROXINE SODIUM 50MCG TABLET PO SCH (05:57)
[2018-06-01 07:01] LABS: HEMOGLOBIN. 9.5 g/dL (14.0-18.0); MEAN CORPUSCULAR HEMOGLOBIN 28.1 pg (28.0-32.0); MEAN CORPUSCULAR VOLUME 86.2 fL (80.0-94.0); MEAN PLATELET VOLUME 10.4 fl (7.4-10.4); PLATELET 176 x1000/uL (130-400); RED BLOOD CELL COUNT 3.36 mill/uL (4.7-6.1); RED CELL DISTRIBUTION WIDTH 15.8 % (11.6-14.6)
[2018-06-01] MEDS: AMIODARONE HCL 200 MG TABLET PO SCH (08:19)
[2018-06-01] MEDS: METOPROLOL TARTRATE 50MG TABLET PO SCH ×2 (08:19→20:48)
[2018-06-01] MEDS: FOLIC ACID/VITAMIN B COMP W-C TABLET PO SCH (08:19)
[2018-06-01] MEDS: ASPIRIN 81MG TABLET PO SCH (08:19)
[2018-06-01] MEDS: GUAIFENESIN 600MG ER TABLET PO SCH ×2 (08:19→20:48)
[2018-06-01 10:12] LABS: PLATELET ESTIMATE NORMAL
[2018-06-01] MEDS ORDERED: BISACODYL 5MG TABLET PO PRN (10:15)
[2018-06-01] MEDS ORDERED: MAGNESIUM CITRATE 300ML SOLUTION PO NR (12:00)
[2018-06-01] MEDS: LACTULOSE 20G/30ML UDC PO SCH ×3 (14:24→20:46)
[2018-06-01] MEDS: ATORVASTATIN CALCIUM 40MG TABLET PO SCH (20:47)
[2018-06-02] VITALS (12 sets, daily range): BP systolic 117–159; BP diastolic 50–74
[2018-06-02] MEDS: IPRATROPIUM/ALBUTEROL 0.5-3(2.5)MG/3ML NEB HHN SCH ×4 (01:00→21:45)
[2018-06-02] MEDS: ACETAMINOPHEN 500MG TABLET PO SCH ×3 (01:15→11:56)
[2018-06-02] MEDS: SODIUM CHLORIDE 0.9% INJ 3ML FLUSH IVF SCH ×3 (06:03→23:10)
[2018-06-02] MEDS: LEVOTHYROXINE SODIUM 50MCG TABLET PO SCH (06:05)
[2018-06-02 08:06] LABS: HEMATOCRIT. 27.4 % (42.0-52.0); HEMOGLOBIN. 8.7 g/dL (14.0-18.0); MEAN CORPUSCULAR HEMOGLOBIN 27.8 pg (28.0-32.0); MEAN CORPUSCULAR VOLUME 87.7 fL (80.0-94.0); MEAN PLATELET VOLUME 10.4 fl (7.4-10.4); PLATELET 159 x1000/uL (130-400); RED BLOOD CELL COUNT 3.13 mill/uL (4.7-6.1); RED CELL DISTRIBUTION WIDTH 16.1 % (11.6-14.6)
[2018-06-02] MEDS: AMIODARONE HCL 200 MG TABLET PO SCH (08:09)
[2018-06-02] MEDS: ASPIRIN 81MG TABLET PO SCH (08:09)
[2018-06-02] MEDS: FOLIC ACID/VITAMIN B COMP W-C TABLET PO SCH (08:09)
[2018-06-02] MEDS: GUAIFENESIN 600MG ER TABLET PO SCH ×2 (08:09→21:23)
[2018-06-02] MEDS: METOPROLOL TARTRATE 50MG TABLET PO SCH ×2 (09:00→21:23)
[2018-06-02 12:45] LABS: PLATELET ESTIMATE NORMAL
[2018-06-02] MEDS ORDERED: ACETAMINOPHEN 500MG TABLET PO PRN (14:45)
[2018-06-02] MEDS: ATORVASTATIN CALCIUM 40MG TABLET PO SCH (21:23)
[2018-06-02] MEDS: EPOETIN ALFA 10000UNITS/ML VIAL SUBCUT SCH (21:24)
[2018-06-03] VITALS (13 sets, daily range): BP systolic 114–165; BP diastolic 43–71
[2018-06-03] MEDS: IPRATROPIUM/ALBUTEROL 0.5-3(2.5)MG/3ML NEB HHN SCH ×4 (02:14→21:25)
[2018-06-03] MEDS: SODIUM CHLORIDE 0.9% INJ 3ML FLUSH IVF SCH ×3 (06:09→21:26)
[2018-06-03] MEDS: LEVOTHYROXINE SODIUM 50MCG TABLET PO SCH (06:09)
[2018-06-03 07:31] LABS: HEMATOCRIT. 28.7 % (42.0-52.0); HEMOGLOBIN. 9.1 g/dL (14.0-18.0); MEAN CORPUSCULAR HEMOGLOBIN 27.9 pg (28.0-32.0); MEAN CORPUSCULAR VOLUME 88.3 fL (80.0-94.0); MEAN PLATELET VOLUME 10.7 fl (7.4-10.4); PLATELET 169 x1000/uL (130-400); RED BLOOD CELL COUNT 3.25 mill/uL (4.7-6.1)
[2018-06-03] MEDS: GUAIFENESIN 600MG ER TABLET PO SCH ×2 (08:17→21:24)
[2018-06-03] MEDS: FOLIC ACID/VITAMIN B COMP W-C TABLET PO SCH (08:17)
[2018-06-03] MEDS: AMIODARONE HCL 200 MG TABLET PO SCH (08:18)
[2018-06-03] MEDS: ASPIRIN 81MG TABLET PO SCH (08:18)
[2018-06-03] MEDS: METOPROLOL TARTRATE 50MG TABLET PO SCH ×2 (09:00→21:00)
[2018-06-03 10:29] LABS: PLATELET ESTIMATE NORMAL
[2018-06-03] MEDS ORDERED: PIPERACILLIN/TAZOBACTAM 2.25 G in DEXTROSE 5% WATER 50 ML IV SCH (15:00)
[2018-06-03] MEDS ORDERED: VANCOMYCIN 1 G PREMIX 200 ML IV NR (17:00)
[2018-06-03] MEDS: PIPERACILLIN/TAZ 2.25G PREMIX 50 ML IV SCH (19:07)
[2018-06-03] MEDS: ATORVASTATIN CALCIUM 40MG TABLET PO SCH (21:24)
[2018-06-04] VITALS (14 sets, daily range): BP systolic 114–175; BP diastolic 36–120
[2018-06-04] MEDS: IPRATROPIUM/ALBUTEROL 0.5-3(2.5)MG/3ML NEB HHN SCH ×4 (01:03→22:35)
[2018-06-04] MEDS: PIPERACILLIN/TAZ 2.25G PREMIX 50 ML IV SCH ×3 (02:59→16:30)
[2018-06-04] MEDS: LEVOTHYROXINE SODIUM 50MCG TABLET PO SCH (05:55)
[2018-06-04] MEDS: SODIUM CHLORIDE 0.9% INJ 3ML FLUSH IVF SCH ×3 (05:55→21:39)
[2018-06-04 06:52] LABS: MEAN CORPUSCULAR HEMOGLOBIN 28.9 pg (28.0-32.0); MEAN PLATELET VOLUME 10.4 fl (7.4-10.4); PLATELET 147 x1000/uL (130-400); RED CELL DISTRIBUTION WIDTH 15.9 % (11.6-14.6)
[2018-06-04] MEDS: AMIODARONE HCL 200 MG TABLET PO SCH (09:36)
[2018-06-04] MEDS: GUAIFENESIN 600MG ER TABLET PO SCH ×2 (09:36→21:38)
[2018-06-04] MEDS: FOLIC ACID/VITAMIN B COMP W-C TABLET PO SCH (09:36)
[2018-06-04] MEDS: ASPIRIN 81MG TABLET PO SCH (09:37)
[2018-06-04 10:03] LABS: PLATELET ESTIMATE NORMAL
[2018-06-04] MEDS: METOPROLOL TARTRATE 25MG TABLET PO SCH ×2 (12:00→21:38)
[2018-06-04] MEDS ORDERED: METOPROLOL TARTRATE 25MG TABLET PO SCH (21:00)
[2018-06-04] MEDS: ATORVASTATIN CALCIUM 40MG TABLET PO SCH (21:37)
[2018-06-04] MEDS: EPOETIN ALFA 10000UNITS/ML VIAL SUBCUT SCH (21:39)
[2018-06-05] VITALS (14 sets, daily range): BP systolic 103–157; BP diastolic 37–85
[2018-06-05] MEDS: PIPERACILLIN/TAZ 2.25G PREMIX 50 ML IV SCH ×3 (01:58→17:51)
[2018-06-05] MEDS: IPRATROPIUM/ALBUTEROL 0.5-3(2.5)MG/3ML NEB HHN SCH ×4 (03:20→21:37)
[2018-06-05] MEDS: LEVOTHYROXINE SODIUM 50MCG TABLET PO SCH (06:01)
[2018-06-05] MEDS: SODIUM CHLORIDE 0.9% INJ 3ML FLUSH IVF SCH ×3 (06:37→20:22)
[2018-06-05 07:05] LABS: HEMATOCRIT. 25.1 % (42.0-52.0); HEMOGLOBIN. 8.2 g/dL (14.0-18.0); MEAN CORPUSCULAR HEMOGLOBIN 28.6 pg (28.0-32.0); MEAN CORPUSCULAR VOLUME 87.5 fL (80.0-94.0); MEAN PLATELET VOLUME 10.7 fl (7.4-10.4); PLATELET 136 x1000/uL (130-400); RED BLOOD CELL COUNT 2.88 mill/uL (4.7-6.1); RED CELL DISTRIBUTION WIDTH 16.8 % (11.6-14.6)
[2018-06-05] MEDS: GUAIFENESIN 600MG ER TABLET PO SCH ×2 (08:31→20:14)
[2018-06-05] MEDS: FOLIC ACID/VITAMIN B COMP W-C TABLET PO SCH (08:31)
[2018-06-05] MEDS: ASPIRIN 81MG TABLET PO SCH (08:31)
[2018-06-05] MEDS: METOPROLOL TARTRATE 25MG TABLET PO SCH ×2 (08:31→20:04)
[2018-06-05] MEDS ORDERED: AMIODARONE HCL 200 MG TABLET PO SCH (09:00)
[2018-06-05 10:07] LABS: PLATELET ESTIMATE NORMAL
[2018-06-05] MEDS: DOCUSATE SODIUM 100MG CAPSULE PO SCH ×2 (11:44→17:51)
[2018-06-05] MEDS ORDERED: VANCOMYCIN 750 MG PREMIX 150 ML IV SCH (16:00)
[2018-06-05] MEDS: ATORVASTATIN CALCIUM 40MG TABLET PO SCH (20:14)
[2018-06-06] VITALS: BP 123/44
[2018-06-06 01:10] VITALS: BP 129/64
== END 2018-06-06 01:20 | DRG 350 ==
LOC: 6EST 14:48 → 6WST 05-18 17:00 → CVICU 05-19 06:25 → 3WST 05-25 16:20
PROVIDERS: ADMIT Internal Medicine Nephrology; ATTEND Internal Medicine Nephrology
PROC: 0YU60JZ Supplement Left Inguinal Region with Synthetic Substitute, Open Approach (ICD-10-PCS; principal; 2018-05-15)
PROC: 0VBG0ZZ Excision of Left Spermatic Cord, Open Approach (ICD-10-PCS; 2018-05-15)
PROC: 30233N1 Transfusion of Nonautologous Red Blood Cells into Peripheral Vein, Percutaneous Approach (ICD-10-PCS; 2018-05-17)
PROC: 5A1955Z Respiratory Ventilation, Greater than 96 Consecutive Hours (ICD-10-PCS; 2018-05-19)
PROC: 0BH17EZ Insertion of Endotracheal Airway into Trachea, Via Natural or Artificial Opening (ICD-10-PCS; 2018-05-19)
PROC: 5A2204Z Restoration of Cardiac Rhythm, Single (ICD-10-PCS; 2018-05-19)
PROC: 05H633Z Insertion of Infusion Device into Left Subclavian Vein, Percutaneous Approach (ICD-10-PCS; 2018-05-19)
PROC: B547ZZA Ultrasonography of Left Subclavian Vein, Guidance (ICD-10-PCS; 2018-05-19)
PROC: 4A023N7 Measurement of Cardiac Sampling and Pressure, Left Heart, Percutaneous Approach (ICD-10-PCS; 2018-05-22)
PROC: B2111ZZ Fluoroscopy of Multiple Coronary Arteries using Low Osmolar Contrast (ICD-10-PCS; 2018-05-22)
PROC: 5A1D70Z Performance of Urinary Filtration, Intermittent, Less than 6 Hours Per Day (ICD-10-PCS; 2018-05-22)
PROC: 5A1D70Z Performance of Urinary Filtration, Intermittent, Less than 6 Hours Per Day (ICD-10-PCS; 2018-05-24)
PROC: 5A1D70Z Performance of Urinary Filtration, Intermittent, Less than 6 Hours Per Day (ICD-10-PCS; 2018-05-26)
PROC: 5A1D70Z Performance of Urinary Filtration, Intermittent, Less than 6 Hours Per Day (ICD-10-PCS; 2018-05-28)
PROC: 5A1D70Z Performance of Urinary Filtration, Intermittent, Less than 6 Hours Per Day (ICD-10-PCS; 2018-05-30)
PROC: 5A1D70Z Performance of Urinary Filtration, Intermittent, Less than 6 Hours Per Day (ICD-10-PCS; 2018-06-01)
PROC: 5A1D70Z Performance of Urinary Filtration, Intermittent, Less than 6 Hours Per Day (ICD-10-PCS; 2018-06-03)
PROC: 5A1D70Z Performance of Urinary Filtration, Intermittent, Less than 6 Hours Per Day (ICD-10-PCS; 2018-06-04)
DX: K40.30 Unilateral inguinal hernia, with obstruction, without gangrene, not specified as recurrent (principal); N18.6 End stage renal disease; G93.41 Metabolic encephalopathy; E43 Unspecified severe protein-calorie malnutrition; I46.9 Cardiac arrest, cause unspecified; A41.9 Sepsis, unspecified organism; I21.4 Non-ST elevation (NSTEMI) myocardial infarction; J69.0 Pneumonitis due to inhalation of food and vomit; J96.00 Acute respiratory failure, unspecified whether with hypoxia or hypercapnia; G62.81 Critical illness polyneuropathy; I12.0 Hypertensive chronic kidney disease with stage 5 chronic kidney disease or end stage renal disease; I47.2 Ventricular tachycardia; I82.C11 Acute embolism and thrombosis of right internal jugular vein; D63.1 Anemia in chronic kidney disease; E05.90 Thyrotoxicosis, unspecified without thyrotoxic crisis or storm; R26.9 Unspecified abnormalities of gait and mobility; N43.3 Hydrocele, unspecified; I95.3 Hypotension of hemodialysis; R74.0 Nonspecific elevation of levels of transaminase and lactic acid dehydrogenase [LDH]; I49.3 Ventricular premature depolarization; K59.00 Constipation, unspecified; N50.3 Cyst of epididymis; N43.41 Spermatocele of epididymis, single; R13.10 Dysphagia, unspecified; X58.XXXA Exposure to other specified factors, initial encounter; N49.2 Inflammatory disorders of scrotum; Z99.2 Dependence on renal dialysis; D69.6 Thrombocytopenia, unspecified; E03.9 Hypothyroidism, unspecified; N40.0 Benign prostatic hyperplasia without lower urinary tract symptoms; E87.8 Other disorders of electrolyte and fluid balance, not elsewhere classified; E87.5 Hyperkalemia; S30.22XA Contusion of scrotum and testes, initial encounter; I25.5 Ischemic cardiomyopathy; E11.22 Type 2 diabetes mellitus with diabetic chronic kidney disease; I25.10 Atherosclerotic heart disease of native coronary artery without angina pectoris; I25.2 Old myocardial infarction; Z82.49 Family history of ischemic heart disease and other diseases of the circulatory system; Z91.018 Allergy to other foods; Z78.1 Physical restraint status; Y93.89 Activity, other specified; Y92.89 Other specified places as the place of occurrence of the external cause; Y99.8 Other external cause status; Z68.21 Body mass index [BMI] 21.0-21.9, adult
CPT/HCPCS: 31500; 36415; 36569; 36600; 71045; 72192; 74176; 76857; 76870; 76937; 80048; 80061; 80076; 80202; 82375; 82550; 82805; 82962; 83036; 83735; 84100; 84153; 84439; 84443; 84478; 84480; 84481; 84484; 85014; 85018; 85027; 85044; 85049; 85384; 86850; 86900; 86920; 87070; 92523; 92610; 93005; 93306; 93454; 93970; 93971; 93976; 94002; 94003; 94640; 97110; 97116; 97162; 97164; 97167; 97530; 97535; C1725; C1760; C1769; C1781; C1887; C1893; G0515; J0282; J0690; J0692; J0696; J0885; J1200; J1644; J1720; J2250; J2270; J2370; J2405; J2543; J2704; J2920; J2930; J3010; J3370; J3475; J3490; J7040; J7050; J7060; J7512; J7620; P9016; Q9967; G0103

== ENCOUNTER 2018-07-08 15:41 | Inpatient (IN) | payer MEDICARE, MEDICAID ==
[~2018-07-08] VITALS: Ht 177.8 cm; Wt 76.7 kg
[2018-07-08 15:30] VITALS: BP 115/34
[2018-07-08] MEDS ORDERED: ATOR40TA70 PO (16:12)
[2018-07-08] MEDS ORDERED: DARB60VI IJ (16:12)
[2018-07-08] MEDS ORDERED: ASPI-1158 PO (16:12)
[2018-07-08] MEDS ORDERED: BENZ1LOZ60 MT (16:12)
[2018-07-08] MEDS ORDERED: BISA10SU8 RC (16:12)
[2018-07-08] MEDS ORDERED: AMIO100T4 PO (16:12)
[2018-07-08] MEDS ORDERED: ACET-2853 PO (16:12)
[2018-07-08] MEDS ORDERED: [UNRECOGNIZED DRUG - CODE] PO (16:33)
[2018-07-08] MEDS ORDERED: DIPH25TA26 IVP (16:33)
[2018-07-08] MEDS ORDERED: IPRA3AMP9 HHN (16:33)
[2018-07-08] MEDS ORDERED: GUAI600T44 PO (16:33)
[2018-07-08] MEDS ORDERED: METO25TA6 PO (16:33)
[2018-07-08] MEDS ORDERED: ERGO500013 PO (16:33)
[2018-07-08] MEDS ORDERED: ZOLP5TAB8 PO (16:33)
[2018-07-08] MEDS ORDERED: DOCU100T PO (16:33)
[2018-07-08] MEDS ORDERED: MELA3TAB71 PO (16:33)
[2018-07-08] MEDS ORDERED: LEVO50TA8 PO (16:33)
[2018-07-08] MEDS ORDERED: ZINC113O14 TP (16:33)
[2018-07-08] MEDS ORDERED: LACT10SO7 MT (16:33)
[2018-07-08] MEDS ORDERED: REN800 PO (16:33)
[2018-07-08] MEDS ORDERED: CLONIDINE 0.1MG TABLET PO PRN (17:30)
[2018-07-08] MEDS ORDERED: DEXTROSE 50% WATER 50ML SYRINGE IV PRN ×2 (17:30)
[2018-07-08] MEDS ORDERED: DOCUSATE SODIUM 100MG CAPSULE PO PRN (17:30)
[2018-07-08] MEDS ORDERED: MAGNESIUM/ALUMINUM HYDROXIDE/SIMETHICONE 30ML UDC PO PRN (17:30)
[2018-07-08] MEDS ORDERED: ONDANSETRON HCL 4MG/2ML INJ IV PRN (17:30)
[2018-07-08] MEDS: INSULIN LISPRO 100 UNITS/ML SUBCUT SCH ×2 (17:40→20:36)
[2018-07-08] MEDS: IPRATROPIUM/ALBUTEROL 0.5-3(2.5)MG/3ML NEB INH PRN (17:59)
[2018-07-08 18:24] VITALS: BP 115/34
[2018-07-08 20:00] VITALS: BP 133/58
[2018-07-08] MEDS: METOPROLOL TARTRATE 25MG TABLET PO SCH (20:35)
[2018-07-08] MEDS: BLOOD SUGAR DIAGNOSTIC STRIP TEST SCH (20:36)
[2018-07-08] MEDS ORDERED: HYDROCODONE/ACETAMINOPHEN 5/325MG TABLET PO PRN (23:45)
[2018-07-08] MEDS ORDERED: HYDROCODONE/ACETAMINOPHEN 10/325MG TABLET PO PRN (23:45)
[2018-07-08] MEDS ORDERED: ACETAMINOPHEN 325MG TABLET PO PRN (23:45)
[2018-07-09] VITALS: BP 136/56
[2018-07-09] MEDS: IPRATROPIUM/ALBUTEROL 0.5-3(2.5)MG/3ML NEB INH PRN ×3 (01:06→11:25)
[2018-07-09 04:00] VITALS: BP 138/65
[2018-07-09] MEDS: INSULIN LISPRO 100 UNITS/ML SUBCUT SCH ×2 (06:37→12:33)
[2018-07-09] MEDS: BLOOD SUGAR DIAGNOSTIC STRIP TEST SCH ×2 (06:37→12:33)
[2018-07-09] MEDS ORDERED: LEVOTHYROXINE SODIUM 50MCG TABLET PO SCH (07:10)
[2018-07-09 08:00] VITALS: BP 151/33
[2018-07-09 08:05] LABS: INR 1.2; PROTHROMBIN TIME 12.4 sec (9.6-11.0)
[2018-07-09] MEDS ORDERED: MIDAZOLAM HCL 2 MG/2 ML VIAL ONE (08:13)
[2018-07-09] MEDS ORDERED: FENTANYL CITRATE/PF 50MCG/ML 2ML VIAL ONE (08:13)
[2018-07-09] MEDS ORDERED: PROPOFOL 10MG/ML 100ML 100 ML IV ONE (08:15)
[2018-07-09 08:20] LABS: BASOPHILS % 0.9 % (0.0-2.0); EOSINOPHILS % 2.9 % (0.0-5.0); HEMATOCRIT. 27.5 % (42.0-52.0); LYMPHOCYTES % 9.6 % (20.0-50.0); MEAN CORPUSCULAR HEMOGLOBIN 28.6 pg (28.0-32.0); MEAN CORPUSCULAR VOLUME 87.3 fL (80.0-94.0); MEAN PLATELET VOLUME 10.2 fl (7.4-10.4); NEUTROPHILS % 75.6 % (40.0-76.0); PLATELET 131 x1000/uL (130-400); RED BLOOD CELL COUNT 3.15 mill/uL (4.7-6.1); RED CELL DISTRIBUTION WIDTH 17.7 % (11.6-14.6)
[2018-07-09] MEDS ORDERED: SEVELAMER CARBONATE 800 MG TABLET PO SCH (09:00)
[2018-07-09] MEDS ORDERED: ATORVASTATIN CALCIUM 40MG TABLET PO SCH (09:00)
[2018-07-09] MEDS ORDERED: AMIODARONE HCL 200 MG TABLET PO SCH (09:00)
[2018-07-09 10:01] LABS: PHOSPHORUS 4.5 mg/dL (2.5-4.9)
[2018-07-09 10:04] LABS: T4 FREE 0.93 ng/dL (0.76-1.46)
[2018-07-09] MEDS: METOPROLOL TARTRATE 25MG TABLET PO SCH (10:11)
[2018-07-09 12:00] VITALS: BP 137/46
== END 2018-07-09 16:43 | disposition left against medical advice (07) | DRG 308 ==
LOC: 8WST 15:41
PROVIDERS: ADMIT Family Medicine Adult Medicine; ATTEND Family Medicine Adult Medicine
DX: I47.2 Ventricular tachycardia (principal); N18.6 End stage renal disease; I13.2 Hypertensive heart and chronic kidney disease with heart failure and with stage 5 chronic kidney disease, or end stage renal disease; I50.9 Heart failure, unspecified; E03.9 Hypothyroidism, unspecified; E11.22 Type 2 diabetes mellitus with diabetic chronic kidney disease; E78.5 Hyperlipidemia, unspecified; I25.5 Ischemic cardiomyopathy; D63.8 Anemia in other chronic diseases classified elsewhere; E11.42 Type 2 diabetes mellitus with diabetic polyneuropathy; R26.9 Unspecified abnormalities of gait and mobility; D69.6 Thrombocytopenia, unspecified; I25.82 Chronic total occlusion of coronary artery; I25.10 Atherosclerotic heart disease of native coronary artery without angina pectoris; I46.9 Cardiac arrest, cause unspecified; Z53.20 Procedure and treatment not carried out because of patient's decision for unspecified reasons; I25.2 Old myocardial infarction; Z86.73 Personal history of transient ischemic attack (TIA), and cerebral infarction without residual deficits; Z82.49 Family history of ischemic heart disease and other diseases of the circulatory system; Z86.718 Personal history of other venous thrombosis and embolism; Z95.810 Presence of automatic (implantable) cardiac defibrillator; Z99.2 Dependence on renal dialysis; Z79.84 Long term (current) use of oral hypoglycemic drugs
CPT/HCPCS: 36415; 80048; 82962; 83735; 84100; 84439; 84443; 84481; 93005; 94640; J2250; J2704; J3010; J7620